=== PATIENT | female | born 1990 | race Caucasian/White ===

== ENCOUNTER 2018-11-07 09:06 | Emergency (ER) | payer MEDICAID ==
--- NOTE | 2018-11-07 09:13 | EDM.PDOC ---
ED HPI GENERAL MEDICAL PROBLEM - General Chief Complaint: ENT Problem Stated Complaint: EAR PAIN Time Seen by Provider: 11/07/18 09:11 - History of Present Illness INITIAL COMMENTS - FREE TEXT/NARRATIVE: HISTORY AND PHYSICAL: History of present illness: Patient's 27-year-old white female presents with concern of sore throat cough and right ear pain is an over last several days she denies fever chills nausea vomiting or other complaints. Review of systems: As per history of present illness and below otherwise all systems reviewed and negative. Past medical history: As per history of present illness and as reviewed below otherwise noncontributory. Surgical history: As per history of present illness and as reviewed below otherwise noncontributory. Social history: No reported history of drug or alcohol abuse. Family history: As per history of present illness and as reviewed below otherwise noncontributory. Physical exam: HEENT: Atraumatic, normocephalic, pupils reactive, negative for conjunctival pallor or scleral icterus, mucous membranes moist, neck supple, nontender, trachea midline. Right TM has some scarring noted there is no erythema and no other significant findings. Throat injected Lungs: Clear to auscultation, breath sounds equal bilaterally, chest nontender. Heart: S1S2, regular, negative for clicks, rubs, or JVD. Abdomen: Soft, nondistended, nontender. Negative for masses or hepatosplenomegaly. Negative for costovertebral tenderness. Pelvis: Stable nontender. Genitourinary: Deferred. Rectal: Deferred. Extremities: Atraumatic, negative for cords or calf pain. Neurovascular unremarkable. Neuro: Awake, alert, oriented. Cranial nerves II through XII unremarkable. Cerebellum unremarkable. Motor and sensory unremarkable throughout. Exam nonfocal. Diagnostics: Rapid strep influenza screen Therapeutics: None Impression: #1 right otalgia #2 pharyngitis #3 viral syndrome Definitive disposition and diagnosis as appropriate pending reevaluation and review of above. - Related Data Allergies Allergy/AdvReac Type Severity Reaction Status Date / Time No Known Allergies Allergy Verified 11/07/18 09:10 Home Meds: Home Meds buPROPion [Wellbutrin] 100 mg PO BID 04/10/15 [History] DULoxetine [Cymbalta] 1 tab PO DAILY 08/31/16 [History] Past Medical History - Past Health History Medical/Surgical History: Denies Medical/Surgical History [employer]ER [employer] History: Reports: Psychiatric History: Reports: Depression - Infectious Disease History Infectious Disease History: Reports: Chicken Pox, MRSA - Past Surgical History Female Surgical History: Reports: Section Social & Family History - Family History Family Medical History: Noncontributory - Caffeine Use Caffeine Use: Reports: Soda ED ROS GENERAL - Review of Systems Review Of Systems: ROS reveals no pertinent complaints other than HPI. ED EXAM, GENERAL - Physical Exam Exam: See Below (See dictation) Course - Vital Signs Last Recorded V/S: Last Vital Signs Temp 36.1 C 11/07/18 09:11 Pulse 85 11/07/18 09:11 Resp 18 11/07/18 09:11 BP 130/93 H 11/07/18 09:11 Pulse Ox 96 11/07/18 09:11 - Orders/Labs/Meds Orders: Active Orders 24 hr Category Date Time Status CULTURE STREP A CONFIRMATION [] Stat Lab 11/07/18 09:16 Results STREP SCRN A RAPID W CULT CONF [RM] Stat Lab 11/07/18 09:16 Results Departure - Departure Time of Disposition: 09:47 Disposition: Home, Self-Care 01 Condition: Good Clinical Impression: Viral syndrome - Discharge Information Referrals: PCP,None [Primary Care Provider] - Forms: ED Department Discharge Additional Instructions: The following information is given to patients seen in the emergency department who are being discharged to home. This information is to outline your options for follow-up care. We provide all patients seen in our emergency department with a follow-up referral. The need for follow-up, as well as the timing and circumstances, are variable depending upon the specifics of your emergency department visit. If you don't have a primary care physician on staff, we will provide you with a referral. We always advise you to contact your personal physician following an emergency department visit to inform them of the circumstance of the visit and for follow-up with them and/or the need for any referrals to a consulting specialist. The emergency department will also refer you to a specialist when appropriate. This referral assures that you have the opportunity for followup care with a specialist. All of these measure are taken in an effort to provide you with optimal care, which includes your followup. Under all circumstances we always encourage you to contact your private physician who remains a resource for coordinating your care. When calling for followup care, please make the office aware that this follow-up is from your recent emergency room visit. If for any reason you are refused follow-up, please contact the [facility] emergency department at and asked to speak to the emergency department charge nurse. Motrin/Tylenol as directed push fluids follow-up private medical doctor as needed as discussed and return as needed as discussed - My Orders Last 24 Hours: My Active Orders 11/07/18 09:16 CULTURE STREP A CONFIRMATION [RM] Stat STREP SCRN A RAPID W CULT CONF [RM] Stat - Assessment/Plan Last 24 Hours: My Active Orders 11/07/18 09:16 CULTURE STREP A CONFIRMATION [RM] Stat STREP SCRN A RAPID W CULT CONF [RM] Stat
[2018-11-07 10:02] VITALS: BP 136/96
== END 2018-11-07 09:58 | disposition home or self-care (01) ==
LOC: MW.ED 09:06
DX: J06.9 Acute upper respiratory infection, unspecified (principal); B34.9 Viral infection, unspecified; H92.01 Otalgia, right ear; F32.9 Major depressive disorder, single episode, unspecified; Z79.899 Other long term (current) drug therapy
CPT/HCPCS: 87081; 87804; 87880-QW; 99283

== ENCOUNTER 2019-03-17 01:00 | Emergency (ER) | payer MEDICAID ==
--- NOTE | 2019-03-17 01:16 | EDM.PDOC ---
ED HPI GENERAL MEDICAL PROBLEM - General Chief Complaint: General Stated Complaint: AMB Time Seen by Provider: 03/17/19 01:01 - History of Present Illness INITIAL COMMENTS - FREE TEXT/NARRATIVE: HISTORY AND PHYSICAL: History of present illness: The patient is a 28-year-old female with no stated medical problems and who has a Mirena in place and denies and presents after falling down about 12 steps after having an argument with her sister. Police are here at bedside to evaluate the story and do a formal report and the patient arrived by ambulance. She does not take anticoagulation therapy and does not make criteria for a trauma alert. She complains of pain to her right shoulder and her left ribs but no head neck or back pain and no abdominal complaints. She has no lower extremity complaints. The patient admits to drinking alcohol this evening and says that her neck is sore but she does not have any bony tenderness it feels more like muscular pain. Earlier today she had no systemic complaints and no pain complaints. According to EMS she did not pass out or blackout and she does not have a headache. On my evaluation she denied any facial pain or tooth loss Review of systems: As per history of present illness and below otherwise all systems reviewed and negative. Past medical history: As per history of present illness and as reviewed below otherwise noncontributory. Surgical history: As per history of present illness and as reviewed below otherwise noncontributory. Social history: No reported history of drug or alcohol abuse. Family history: As per history of present illness and as reviewed below otherwise noncontributory. Physical exam: General: Well-developed well-nourished overweight female who is nontoxic and tearful on my evaluation vital signs are noted by me. Patient moves all extremities spontaneously. She arrived in a c-collar but no backboard and the c- collar was maintained throughout the course of my evaluation HEENT: Atraumatic, no palpable scalp defects deformities or soft tissue swelling , normocephalic, pupils reactive, sclera are injected, negative for conjunctival pallor or scleral icterus, mucous membranes moist, throat clear, neck supple, nontender, trachea midline. There are no midline step-offs tenderness defects of the cervical spine and there is some diffuse paraspinal tenderness and the c-collar was maintained. There is no facial bony tenderness defects or deformities and EOMs are intact. Teeth and bite are intact. TMs are without abnormality. Lungs: Clear to auscultation, breath sounds equal bilaterally, chest wall/ribs on the left anterior chest wall have some mild tenderness to palpation but there is no ecchymosis region erythema defects or deformities nor any crepitus on my palpation exam Heart: S1S2, regular, negative for clicks, rubs, or JVD. There is no overt murmurs Abdomen: Soft, nondistended, nontender. Negative for masses or hepatosplenomegaly. Negative for costovertebral tenderness. Pelvis: Stable nontender. Genitourinary: Deferred. Rectal: Deferred. Extremities: Bilateral lower extremities with full range of motion without defects deficits tenderness or soft tissue swelling. There is a superficial abrasion to her right elbow without bony deformities or soft tissue swelling. There is tenderness at the anterior right shoulder and clavicle without any evidence of step-off or malalignment and there is no ecchymosis appreciated. The left upper extremity is without defects deformities or abnormalities. The legs are negative for cords or calf pain. Neurovascular unremarkable. Neuro: Awake, alert, oriented. Cranial nerves II through XII unremarkable. Cerebellum unremarkable. Motor and sensory unremarkable throughout. Exam nonfocal. Back: There are no midline step-offs tenderness defects the thoracic or lumbar spine no posterior rib or posterior pelvis tenderness and no soft tissue injury such as ecchymosis erythema soft tissue swelling or abrasions Diagnostics: CT scan of the head and neck, x-ray of right shoulder and left ribs with chest x -ray Therapeutics: Toradol IM sling Impression: Fall with left rib contusion, right shoulder injury/pain, cervical strain Definitive disposition and diagnosis as appropriate pending reevaluation and review of above. 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 ED EXAM, GENERAL - Physical Exam Exam: See Below (See dictation) Course - Vital Signs Last Recorded V/S: Last Vital Signs Temp 36.6 C 03/17/19 01:00 Pulse 108 H 03/17/19 01:00 Resp 18 03/17/19 01:00 BP 133/89 03/17/19 01:00 Pulse Ox 94 L 03/17/19 01:00 - Orders/Labs/Meds Orders: Active Orders 24 hr Category Date Time Status DME for Discharge [COMM] Stat Oth 03/17/19 02:19 Ordered Meds: Medications Discontinued Medications Generic Name Dose Route Start Last Admin Trade Name Ryan PRN Reason Stop Dose Admin Ketorolac Tromethamine 60 mg 03/17/19 02:00 03/17/19 02:14 Toradol IM 03/17/19 02:01 60 mg ONETIME ONE Administration Departure - Departure Time of Disposition: 02:19 Disposition: Home, Self-Care 01 Condition: Good Clinical Impression: Fall (on) (from) other stairs and steps, initial encounter Right shoulder injury Qualifiers: Encounter type: initial encounter Qualified Code(s): S49.91XA - Unspecified injury of right shoulder and upper arm, initial encounter Contusion of rib on left side Qualifiers: Encounter type: initial encounter Qualified Code(s): S20.212A - Contusion of left front wall of thorax, initial encounter - Discharge Information Forms: ED Department Discharge Additional Instructions: The following information is given to patients seen in the emergency department who are being discharged to home. This information is to outline your options for follow-up care. We provide all patients seen in our emergency department with a follow-up referral. The need for follow-up, as well as the timing and circumstances, are variable depending upon the specifics of your emergency department visit. If you don't have a primary care physician on staff, we will provide you with a referral. We always advise you to contact your personal physician following an emergency department visit to inform them of the circumstance of the visit and for follow-up with them and/or the need for any referrals to a consulting specialist. The emergency department will also refer you to a specialist when appropriate. This referral assures that you have the opportunity for followup care with a specialist. All of these measure are taken in an effort to provide you with optimal care, which includes your followup. Under all circumstances we always encourage you to contact your private physician who remains a resource for coordinating your care. When calling for followup care, please make the office aware that this follow-up is from your recent emergency room visit. If for any reason you are refused follow-up, please contact the emergency department at and ask to speak to the emergency department charge nurse. [facility] Primary care- Internal Medicine and Family [facility] [address] [place] [address] [id number] [facility] Specialty Care--Orthopedic clinic Professional [address] [address] Use ice to areas of pain and use [id number] Tylenol and ibuprofen for pain management or take the diclofenac you have been prescribed from [facility]. You may use the Flexeril given to you for muscle pain and spasm. Please call and schedule follow-up appointment in orthopedics clinic for further evaluation and care of your shoulder and with her primary care clinic for further evaluation of other symptomatology. Return to ER as needed and as discussed. Push hydration and to refrain from alcohol use - My Orders Last 24 Hours: My Active Orders 03/17/19 02:19 DME for Discharge [COMM] Stat - Assessment/Plan Last 24 Hours: My Active Orders 03/17/19 02:19 DME for Discharge [COMM] Stat
--- NOTE | 2019-03-17 01:55 | CR ---
Indication: Pain after fall Technique: Two views right shoulder Comparison: None Findings/Impression: Suboptimal positioning on the frontal view. No definite fracture. Recommend repeat frontal view as well as an Grashey view for further evaluation. Dictated by Renuka Guerin MD @ Mar 17 2019 1:49AM Signed by Dr. Renuka Guerin @ Mar 17 2019 1:53AM
--- NOTE | 2019-03-17 01:57 | CR ---
INDICATION: Chest wall pain following fall TECHNIQUE: Chest radiograph, Rib radiographs 4 views left COMPARISON: None FINDINGS: Severe degradation of image quality noted due to body habitus. Mediastinum: The mediastinum is normal in appearance. The heart silhouette is normal in size and morphology. Lung: Both lungs are unremarkable in appearance. No sign of pleural effusion seen. No pneumothorax is identified. Ribs and bones: No definite acute rib fractures are identified in the visualized ribs. The remaining osseous structures are unremarkable for age. Soft tissue: Unremarkable. IMPRESSIONS: 1. No acute cardiopulmonary disease is seen. No acute rib injuries noted. 2. Severe degradation of image quality noted due to body habitus. Dictated by Junior Garzon MD @ 03/17/2019 1:56:15 AM Dictated by: Junior Garzon MD @ 03/17/2019 01:56:17 (Electronically Signed)
--- NOTE | 2019-03-17 01:57 | CT ---
INDICATION: Pain after fall TECHNIQUE: CT cervical spine without contrast. COMPARISON: None FINDINGS: Vertebral alignment: Alignment is normal. Vertebrae: There are no fractures or suspicious bony lesions. Discs and facet joints: No significant degenerative changes. Extraspinal findings: Paraspinous soft tissues are unremarkable. IMPRESSION: No acute fracture or subluxation. Please note that all CT scans at this facility use dose modulation, iterative reconstruction, and/or weight-based dosing when appropriate to reduce radiation dose to as low as reasonably achievable. Dictated by Renuka Guerin MD @ Mar 17 2019 1:56AM Signed by Dr. Renuka Guerin @ Mar 17 2019 1:56AM
--- NOTE | 2019-03-17 01:59 | CT ---
INDICATION: Pain after fall TECHNIQUE: CT head without contrast. COMPARISON: None FINDINGS: CSF spaces: Within normal limits for age. Brain parenchyma: The ochoa-white differentiation is normal. No sign of mass, hemorrhage, or midline shift. Skull base and calvarium: The visualized paranasal sinuses and mastoid air cells demonstrate no acute or significant findings. The visualized orbits are grossly unremarkable. No skull fractures. IMPRESSION: Unremarkable noncontrast head CT. Please note that all CT scans at this facility use dose modulation, iterative reconstruction, and/or weight-based dosing when appropriate to reduce radiation dose to as low as reasonably achievable. Dictated by Renuka Guerin MD @ Mar 17 2019 1:58AM Signed by Dr. Renuka Guerin @ Mar 17 2019 1:58AM
[2019-03-17] MEDS ORDERED: Ketorolac 60 MG/2 ML SDV IM ONE (02:00)
[2019-03-17 02:27] VITALS: BP 111/76
== END 2019-03-17 02:40 | disposition home or self-care (01) ==
LOC: MW.ED 01:00
DX: S16.1XXA Strain of muscle, fascia and tendon at neck level, initial encounter (principal); S20.212A Contusion of left front wall of thorax, initial encounter; S49.91XA Unspecified injury of right shoulder and upper arm, initial encounter; S50.311A Abrasion of right elbow, initial encounter; Z79.899 Other long term (current) drug therapy; W10.9XXA Fall (on) (from) unspecified stairs and steps, initial encounter
CPT/HCPCS: 70450; 71101; 72125; 73030; 96372; 99284; J1885

== ENCOUNTER 2019-11-10 08:39 | Emergency (ER) | payer MEDICAID ==
[2019-11-10 09:58] LABS: BLOOD UREA NITROGEN,BUN 12 mg/dL (7.0-18.0); CARBON DIOXIDE,CO2 24.7 mmol/L (21.0-32.0); CHLORIDE,CL 101 mmol/L (98-107); GLUCOSE RANDOM 96 mg/dL (74-106); POTASSIUM,K 3.8 mmol/L (3.5-5.1); SODIUM,NA 138 mmol/L (136-145)
--- NOTE | 2019-11-10 10:01 | CR ---
Chest: Portable view of the chest was obtained. Comparison: No prior chest imaging. Heart size and mediastinum are normal. Lungs are clear. Bony structures are grossly intact. Impression: 1. Nothing acute is appreciated on portable chest x-ray. Diagnostic code #1 This report was dictated in [place] Standard Time
--- NOTE | 2019-11-10 11:08 | EDM.PDOC ---
ED HPI GENERAL MEDICAL PROBLEM - General Chief Complaint: Chest Pain Stated Complaint: REFERRED BY PHYS FOR CHEST PAIN Time Seen by Provider: 11/10/19 11:06 Source of Information: Reports: Patient - History of Present Illness INITIAL COMMENTS - FREE TEXT/NARRATIVE: HISTORY AND PHYSICAL: History of present illness: [Presents with left-sided chest pain for 24 hours worsened by movement of her left arm no association with shortness of breath or diaphoresis no radiation to the arm neck or jaw Trauma No fever nausea vomiting chills sweats] Review of systems: As per history of present illness and below otherwise all systems reviewed and negative. Past medical history: As per history of present illness and as reviewed below otherwise noncontributory. Surgical history: As per history of present illness and as reviewed below otherwise noncontributory. Social history: No reported history of drug or alcohol abuse. Family history: As per history of present illness and as reviewed below otherwise noncontributory. Physical exam: HEENT: Atraumatic, normocephalic, pupils reactive, negative for conjunctival pallor or scleral icterus, mucous membranes moist, throat clear, neck supple, nontender, trachea midline. Lungs: Clear to auscultation, breath sounds equal bilaterally, chest nontender. Heart: S1S2, regular, negative for clicks, rubs, or JVD. Abdomen: Soft, nondistended, nontender. Negative for masses or hepatosplenomegaly. Negative for costovertebral tenderness. Pelvis: Stable nontender. Genitourinary: Deferred. Rectal: Deferred. Extremities: Atraumatic, negative for cords or calf pain. Neurovascular unremarkable. Neuro: Awake, alert, oriented. Cranial nerves II through XII unremarkable. Cerebellum unremarkable. Motor and sensory unremarkable throughout. Exam nonfocal. I can reproduce spasm with palpation of pectoralis major insertion on the left Diagnostics: [CMP UA troponin EKG Chest 1 view ] Therapeutics: [Ice ibuprofen ] Impression: [Muscle spasm] Definitive disposition and diagnosis as appropriate pending reevaluation and review of above. Left Chest Pain Score (Numeric/FACES): 7 - Related Data Allergies Allergy/AdvReac Type Severity Reaction Status Date / Time No Known Allergies Allergy Verified 11/10/19 08:58 Home Meds: Home Meds buPROPion [Wellbutrin] 300 mg PO DAILY 04/10/15 [History] Omeprazole Magnesium [Prilosec Otc] 1 tab PO DAILY 03/17/19 [History] Venlafaxine [Effexor] 75 mg PO DAILY 11/10/19 [History] Past Medical History - Past Health History Medical/Surgical History: Denies Medical/Surgical History [employer] History: Reports: Psychiatric History: Reports: Depression - Infectious Disease History Infectious Disease History: Reports: Chicken Pox, MRSA - Past Surgical History HEENT Surgical History: Reports: Adenoidectomy, Tonsillectomy GI Surgical History: Reports: Appendectomy, Cholecystectomy Female Surgical History: Reports: Section Social & Family History - Family History Family Medical History: Noncontributory - Tobacco Use Smoking Status *Q: Former Smoker Used Tobacco, but Quit: Yes Month/Year Tobacco Last Used: 2018 - Caffeine Use Caffeine Use: Reports: Energy Drinks Other Caffeine Use: 4/day up until 1 week ago. Then down to 1/day - Recreational Drug Use Recreational Drug Use: No ED ROS GENERAL - Review of Systems Review Of Systems: See Below ED EXAM, GENERAL - Physical Exam Exam: See Below Course - Vital Signs Last Recorded V/S: Last Vital Signs Temp 97.0 F 11/10/19 10:45 Pulse 82 11/10/19 10:45 Resp 17 11/10/19 10:45 BP 136/99 H 11/10/19 10:45 Pulse Ox 96 11/10/19 10:45 - Orders/Labs/Meds Orders: Active Orders 24 hr Category Date Time Status EKG Documentation Completion [RC] STAT Care 11/10/19 08:50 Active Labs: Laboratory Tests 11/10/19 11/10/19 11/10/19 Range/Units 09:10 09:10 09:14 WBC 9.10 (4.0-11.0) K/uL RBC 4.76 (4.30-5.90) M/uL Hgb 14.1 (12.0-16.0) g/dL Hct 41.7 (36.0-46.0) % MCV 87.6 (80.0-98.0) fL MCH 29.6 (27.0-32.0) pg MCHC 33.8 (31.0-37.0) g/dL RDW Std Deviation 43.8 (28.0-62.0) fl RDW Coeff of Alexey 14 (11.0-15.0) % Plt Count 325 (150-400) K/uL MPV 8.90 (7.40-12.00) fL Neut % (Auto) 55.1 (48.0-80.0) % Lymph % (Auto) 36.2 (16.0-40.0) % [place] % (Auto) 6.2 (0.0-15.0) % Eos % (Auto) 2.2 (0.0-7.0) % Baso % (Auto) 0.3 (0.0-1.5) % Neut # (Auto) 5.0 (1.4-5.7) K/uL Lymph # (Auto) 3.3 H (0.6-2.4) K/uL [place] # (Auto) 0.6 (0.0-0.8) K/uL Eos # (Auto) 0.2 (0.0-0.7) K/uL Baso # (Auto) 0.0 (0.0-0.1) K/uL Nucleated RBC % 0.0 /100WBC Nucleated RBCs # 0 K/uL Sodium 138 (136-145) mmol/L Potassium 3.8 (3.5-5.1) mmol/L Chloride 101 (98-107) mmol/L Carbon Dioxide 24.7 (21.0-32.0) mmol/L BUN 12 (7.0-18.0) mg/dL Creatinine 0.8 (0.6-1.0) mg/dL Est Cr Clr Drug Dosing 92.53 mL/min Estimated GFR (MDRD) > 60.0 ml/min Glucose 96 (74-106) mg/dL Calcium 8.8 (8.5-10.1) mg/dL Total Bilirubin 0.4 (0.2-1.0) mg/dL AST 12 L (15-37) IU/L ALT 24 (14-63) IU/L Alkaline Phosphatase 119 H (46-116) U/L Troponin I < 0.050 (0.000-0.056) ng/mL Total Protein 7.0 (6.4-8.2) g/dL Albumin 3.6 (3.4-5.0) g/dL Globulin 3.4 (2.6-4.0) g/dL Albumin/Globulin Ratio 1.1 (0.9-1.6) Urine Color YELLOW Urine Appearance SLT CLOUDY Urine pH 6.5 (5.0-8.0) Ur Specific [place] >= 1.030 (1.001-1.035) Urine Protein NEGATIVE (NEGATIVE) mg/dL Urine Glucose (UA) NEGATIVE (NEGATIVE) mg/dL Urine Ketones NEGATIVE (NEGATIVE) mg/dL Urine Occult Blood MODERATE H (NEGATIVE) Urine Nitrite NEGATIVE (NEGATIVE) Urine Bilirubin NEGATIVE (NEGATIVE) Urine Urobilinogen 0.2 (<2.0) EU/dL Ur Leukocyte Esterase NEGATIVE (NEGATIVE) Urine RBC 1-2 (0-2/HPF) Urine WBC 1-3 (0-5/HPF) Ur Epithelial Cells MODERATE (NONE-FEW) Urine Bacteria FEW (NEGATIVE) Urine Mucus LIGHT (NONE-MOD) Urine HCG, Qual (NEGATIVE) 11/10/19 Range/Units 09:14 WBC (4.0-11.0) K/uL RBC (4.30-5.90) M/uL Hgb (12.0-16.0) g/dL Hct (36.0-46.0) % MCV (80.0-98.0) fL MCH (27.0-32.0) pg MCHC (31.0-37.0) g/dL RDW Std Deviation (28.0-62.0) fl RDW Coeff of Alexey (11.0-15.0) % Plt Count (150-400) K/uL MPV (7.40-12.00) fL Neut % (Auto) (48.0-80.0) % Lymph % (Auto) (16.0-40.0) % [place] % (Auto) (0.0-15.0) % Eos % (Auto) (0.0-7.0) % Baso % (Auto) (0.0-1.5) % Neut # (Auto) (1.4-5.7) K/uL Lymph # (Auto) (0.6-2.4) K/uL [place] # (Auto) (0.0-0.8) K/uL Eos # (Auto) (0.0-0.7) K/uL Baso # (Auto) (0.0-0.1) K/uL Nucleated RBC % /100WBC Nucleated RBCs # K/uL Sodium (136-145) mmol/L Potassium (3.5-5.1) mmol/L Chloride (98-107) mmol/L Carbon Dioxide (21.0-32.0) mmol/L BUN (7.0-18.0) mg/dL Creatinine (0.6-1.0) mg/dL Est Cr Clr Drug Dosing mL/min Estimated GFR (MDRD) ml/min Glucose (74-106) mg/dL Calcium (8.5-10.1) mg/dL Total Bilirubin (0.2-1.0) mg/dL AST (15-37) IU/L ALT (14-63) IU/L Alkaline Phosphatase (46-116) U/L Troponin I (0.000-0.056) ng/mL Total Protein (6.4-8.2) g/dL Albumin (3.4-5.0) g/dL Globulin (2.6-4.0) g/dL Albumin/Globulin Ratio (0.9-1.6) Urine Color Urine Appearance Urine pH (5.0-8.0) Ur Specific [place] (1.001-1.035) Urine Protein (NEGATIVE) mg/dL Urine Glucose (UA) (NEGATIVE) mg/dL Urine Ketones (NEGATIVE) mg/dL Urine Occult Blood (NEGATIVE) Urine Nitrite (NEGATIVE) Urine Bilirubin (NEGATIVE) Urine Urobilinogen (<2.0) EU/dL Ur Leukocyte Esterase (NEGATIVE) Urine RBC (0-2/HPF) Urine WBC (0-5/HPF) Ur Epithelial Cells (NONE-FEW) Urine Bacteria (NEGATIVE) Urine Mucus (NONE-MOD) Urine HCG, Qual NEGATIVE (NEGATIVE) Departure - Departure Time of Disposition: 11:07 Disposition: Home, Self-Care 01 Condition: Good Clinical Impression: Muscle spasm - Discharge Information Referrals: Jan Billings MD [Primary Care Provider] - Additional Instructions: rest ice ibuprofen Return if symptoms persist or worsen Follow-up with primary care in 2 weeks The following information is given to patients seen in the emergency department who are being discharged to home. This information is to outline your options for follow-up care. We provide all patients seen in our emergency department with a follow-up referral. The need for follow-up, as well as the timing and circumstances, are variable depending upon the specifics of your emergency department visit. If you don't have a primary care physician on staff, we will provide you with a referral. We always advise you to contact your personal physician following an emergency department visit to inform them of the circumstance of the visit and for follow-up with them and/or the need for any referrals to a consulting specialist. The emergency department will also refer you to a specialist when appropriate. This referral assures that you have the opportunity for follow-up care with a specialist. All of these measure are taken in an effort to provide you with optimal care, which includes your follow-up. Under all circumstances we always encourage you to contact your private physician who remains a resource for coordinating your care. When calling for follow-up care, please make the office aware that this follow-up is from your recent emergency room visit. If for any reason you are refused follow-up, please contact the [facility] emergency department at and asked to speak to the emergency department charge nurse. Sepsis Event Note - Evaluation Sepsis Screening Result: No Definite Risk - Focused Exam Vital Signs: Vital Signs Temp Pulse Resp BP Pulse Ox 11/10/19 10:45 97.0 F 82 17 136/99 H 96 11/10/19 10:18 158/104 H 11/10/19 09:53 97.6 F 83 20 144/98 H 95 11/10/19 09:00 96.2 F 85 16 140/103 H 96 11/10/19 08:59 84 19 135/100 H 96 Date Exam was Performed: 11/10/19 Time Exam was Performed: 11:06 - My Orders Last 24 Hours: My Active Orders 11/10/19 08:50 EKG Documentation Completion [RC] STAT - Assessment/Plan Last 24 Hours: My Active Orders 11/10/19 08:50 EKG Documentation Completion [RC] STAT
[2019-11-10 11:42] VITALS: BP 135/80; PULSE 106
== END 2019-11-10 11:46 | disposition home or self-care (01) ==
LOC: MW.ED 08:39
DX: M62.838 Other muscle spasm (principal); F32.9 Major depressive disorder, single episode, unspecified; Z79.899 Other long term (current) drug therapy; Z87.891 Personal history of nicotine dependence
CPT/HCPCS: 36415; 71045; 71045-26; 80053; 81001; 81025; 84484; 85025; 93005; 99285-25

== ENCOUNTER 2021-08-21 14:55 | Emergency (ER) | payer MEDICAID ==
[2021-08-21] MEDS ORDERED: Ketorolac 15 MG/ML SDV IM ONE (17:43)
[2021-08-21 17:48] VITALS: BP 144/85; PULSE 79
--- NOTE | 2021-08-21 17:59 | EDM.PDOC ---
ED HPI GENERAL MEDICAL PROBLEM - General Chief Complaint: Headache Stated Complaint: ON AND OFF FEVER, MIGRAINE FOR PAST WEEK, SOB Time Seen by Provider: 08/21/21 17:47 - History of Present Illness INITIAL COMMENTS - FREE TEXT/NARRATIVE: CHIEF COMPLAINT(S): Shortness of breath and cough HISTORY OF PRESENT ILLNESS: This is a 30-year-old woman with a past medical history of asthma who comes to the emergency department with a chief complaint of shortness of breath and cough. The patient states that for approximately 3 days now she has been experiencing chills, fever, sore throat and she lost her sense of taste. She states that she has had a nonproductive cough and some shortness of breath for which she has been using her inhaler. Her last use of in her inhaler was prior to arrival. She states that she is not vaccinated and has a mild migraine which she describes as bifrontal not associated with any blurry vision, double vision, loss of vision, numbness, tingling, weakness. She denies any neck pain or stiffness. She states that the pain is not exacerbated by anything. There are no relieving factors. She states that she is concerned that she may have COVID-19. She denies any vaccines. REVIEW OF SYSTEMS: Constitutional: Positive for fever Eyes: Denies eye pain Ears, Nose, Mouth, & Throat: Positive for sore throat and loss of taste Cardiovascular: Denies chest pain Respiratory: Positive for shortness of breath and nonproductive cough Gastrointestinal: Denies Nausea, vomiting, diarrhea, hematochezia. Genitourinary: Denies hematuria Skin:Denies a rash MSK: Denies joint pain Neurological: Positive for bifrontal headache. Denies blurred vision, numbness, tingling, weakness Psychiatric: Denies depression PAST MEDICAL HISTORY: As per history of present illness and as reviewed below otherwise noncontributory. SURGICAL HISTORY: As per history of present illness and as reviewed below otherwise noncontributory. SOCIAL HISTORY: As per history of present illness and as reviewed below otherwise noncontributory. FAMILY HISTORY: As per history of present illness and as reviewed below otherwise noncontributory. EXAMINATION OF ORGAN SYSTEMS/BODY AREAS: Constitutional: Blood pressure is 115/87, heart rate 80, respiratory rate 18 with an oxygen saturation of 97% on room air. Temperature 37.3 General: Well-appearing woman who is in no acute distress Psychiatric: Appropriate mood and affect. Eyes: No scleral icterus or conjunctival erythema ENMT: Moist mucous membranes. No pharyngeal erythema Cardiovascular: Regular, rate, and rhythm. No gallops, murmurs, or rubs. Bilateral upper extremity pulses symmetric and intact. No peripheral edema. No JVD. Respiratory: Lungs clear to auscultation bilaterally. No wheezes, rales, or rhonchi. Gastrointestinal: Soft, non-tender, non-distended. Normoactive bowel sounds Genitourinary: No suprapubic tenderness Musculoskeletal: Normal range of motion. Skin: No lesions or abrasions. Neurological: Alert, GCS 15 strength and sensation grossly intact in upper and lower extremities bilaterally MEDICAL DECISION MAKING AND COURSE IN THE ED WITH INTERPRETATION/REVIEW OF DIAGNOSTIC STUDIES: This is a 30-year-old woman with a past medical history of asthma who comes to the emergency department 3 days of viral upper respiratory- like symptoms possibly consistent with COVID-19 pneumonia. The patient's vital signs are completely normal and the patient has no wheezing on examination. No therapeutics are indicated at this time. We'll obtain a Covid swab and discuss results after swab has been completed. DDx: COVID-19, influenza, viral upper respiratory infection Laboratory: COVID-19 positive. After lab I did discuss results with the patient. Given the patient's BMI I did discuss that she is considered high risk for progression to severe COVID-19. I did offer the Regeneron therapy for which the patient was not sure of at this time however we will fax the patient's information. She was given strict return precautions. The patient was amenable to discharge and had no further questions. DISPOSITION: The patient was discharged home in stable condition. The patient will follow up with primary care physician after isolation. CONDITION: Fair PROCEDURES: None FINAL IMPRESSION(S)/DIAGNOSES: 1. Acute COVID-19 Pieter Suarez M.D. Generalized Pain Score (Numeric/FACES): 6 - Related Data Allergies Allergy/AdvReac Type Severity Reaction Status Date / Time No Known Allergies Allergy Verified 08/21/21 16:19 Home Meds: Home Meds buPROPion [Wellbutrin] 300 mg PO DAILY 04/10/15 [History] Omeprazole Magnesium [Prilosec Otc] 1 tab PO DAILY 03/17/19 [History] Venlafaxine [Effexor] 75 mg PO DAILY 11/10/19 [History] Past Medical History - Past Health History Medical/Surgical History: Denies Medical/Surgical History [employer] History: Reports: Psychiatric History: Reports: Depression - Infectious Disease History Infectious Disease History: Reports: Chicken Pox, MRSA - Past Surgical History HEENT Surgical History: Reports: Adenoidectomy, Tonsillectomy GI Surgical History: Reports: Appendectomy, Cholecystectomy Female Surgical History: Reports: Section Social & Family History - Family History Family Medical History: No Pertinent Family History - Caffeine Use Caffeine Use: Reports: Energy Drinks Other Caffeine Use: 4/day up until 1 week ago. Then down to 1/day ED ROS GENERAL - Review of Systems Review Of Systems: See Below ED EXAM, GENERAL - Physical Exam Exam: See Below Course - Vital Signs Last Recorded V/S: Last Vital Signs Temp 37.3 C 08/21/21 16:19 Pulse 79 08/21/21 17:48 Resp 18 08/21/21 16:19 BP 144/85 H 08/21/21 17:48 Pulse Ox 98 08/21/21 17:48 - Orders/Labs/Meds Labs: Laboratory Tests 08/21/21 Range/Units 16:11 SARS-CoV-2 RNA (MEKA) POSITIVE H (NEGATIVE) Meds: Medications Discontinued Medications Generic Name Dose Route Start Last Admin Trade Name Ryan PRN Reason Stop Dose Admin Ketorolac Tromethamine 15 mg 08/21/21 17:43 08/21/21 18:10 Ketorolac 15 Mg/Ml Sdv IM 08/21/21 17:44 15 mg ONETIME ONE Administration Departure - Departure Time of Disposition: 17:59 Disposition: Home, Self-Care 01 Condition: Fair Clinical Impression: COVID-19 - Discharge Information Instructions: COVID-19 Frequently Asked Questions, 10 Things You Can Do to Manage Your COVID-19 Symptoms at Home - CDC (04/29/2021), COVID-19: How to Protect Yourself and Others - CDC, COVID-19: Quarantine vs. Isolation - [facility] (09/30/2020) Referrals: Jan Billings MD [Primary Care Provider] - Forms: ED Department Discharge Additional Instructions: You should take acetaminophen 500-1000 mg every 6 hours as needed for fever and muscle aches. Please drink plenty of fluids and get plenty of rest over the next several days. We would recommend that she get a pulse oximeter from the pharmacy to keep an eye on your oxygen level. If your oxygen level drops below 91%, you should return to the ED for evaluation. You should return to the ER sooner if you start having any symptoms of shortness of breath or any other new or concerning symptoms. 1. Your COVID-19 screening is positive. That means you do have the coronavirus and you are considered contagious. Your vital signs and oxygen saturation are well enough that you were able to monitor your symptoms at home. Continue to monitor for trouble breathing, new confusion or inability to arouse, bluish lips or face or any of the other symptoms we discussed -if this occurs please return to the emergency room. 2. Please self quarantine over the next 10 days. Inform any persons that you have been in contact with since you started becoming symptomatic that you have tested positive; they should be made aware and take the appropriate steps as needed. 3. May alternate Tylenol and ibuprofen as needed for pain and fever management. 4. The [facility] will be calling you and following up with you. The [place] COVID 19 Hotline phone number , They are open Sunday - Sunday 7am - 7pm. Follow up with your primary care provider for re-evaluation and re-testing after the 10 day quarantine and discuss when you should be seen. [facility] - Primary Care [address] [place] [address] [id number] [address] [id number] The patient is informed of any results of their evaluation and diagnostic workup and all questions are answered. They are given discharge instructions and return precautions. The patient is stable for discharge. The patient states they understand and agree with the plan and that they will return if their symptoms g et worse or if they have any new concerns. The following information is given to patients seen in the emergency department who are being discharged to home. This information is to outline your options for follow-up care. We provide all patients seen in our emergency department with a follow-up referral. The need for follow-up, as well as the timing and circumstances, are variable depending upon the specifics of your emergency department visit. If you don't have a primary care physician on staff, we will provide you with a referral. We always advise you to contact your personal physician following an emergency department visit to inform them of the circumstance of the visit and for follow-up with them and/or the need for any referrals to a consulting specialist. The emergency department will also refer you to a specialist when appropriate. This referral assures that you have the opportunity for follow-up care with a specialist. All of these measure are taken in an effort to provide you with optimal care, which includes your follow-up. Under all circumstances we always encourage you to contact your private physician who remains a resource for coordinating your care. When calling for follow-up care, please make the office aware that this follow-up is from your recent emergency room visit. If for any reason you are refused follow-up, please contact the [facility] Emergency Department at and asked to speak to the emergency department charge nurse. Sepsis Event Note (ED) - Evaluation Sepsis Screening Result: No Definite Risk
== END 2021-08-21 18:08 | disposition home or self-care (01) ==
LOC: MW.ED 14:55
DX: U07.1 COVID-19 (principal)
CPT/HCPCS: 87635; 96372; 99284; J1885; U0002